=== PATIENT | male | born 1995 | race Caucasian/White ===

== ENCOUNTER 2019-03-23 06:40 | Day surgery (SDC) | payer BC ==
[~2019-03-23] VITALS: Ht 182.9 cm; Wt 109.3 kg
[2019-03-23 07:07] VITALS: BP 163/103; PULSE 103; TEMP 98.3
[2019-03-23 08:26] VITALS: BP 140/63; PULSE 108; TEMP 98
--- NOTE | 2019-03-23 08:26 | NUR ---
The patient arrived back to [facility] [facility] from the operating room at this time. The patient appears alert and oriented and denies any pain or nausea at this time. The patient requests to try some ice water at this time. Post operative vital signs were started at this time. The patient's mother was brought back to be at his bedside. Call light remains within reach. Will continue to monitor the patient.
[2019-03-23 08:41] VITALS: BP 145/61; PULSE 92
--- NOTE | 2019-03-23 08:41 | NUR ---
The patient appears to be resting comfortably on the cart at this time. The patient has tolerated his water and denies wanting anything further to eat or drink at this time. Vital signs appear stable. Will continue to monitor the patient.
[2019-03-23 08:55] VITALS: BP 130/73; PULSE 85
--- NOTE | 2019-03-23 08:55 | NUR ---
The patient voices a desire to be discharge home after finishing his water and tolerating it well. Discharge instructions were reviewed with the patient and his mother at this time. They both verbalized understanding and have no questions for the nurse at this time. The patient's IV to his right hand was removed and a pressure dressing was applied to the site. The nurse instructed the patient to get dressed and notify the staff when he is ready to be escorted out.
--- NOTE | 2019-03-23 09:02 | NUR ---
The patient ambulated out to a private vehicle using a steady gait escorted by ESPERANZA Glez. The patient's belongings and discharge paperwork were sent with him. The patient's mother is present to drive him home.
== END 2019-03-23 09:02 | disposition home or self-care (01) ==
LOC: SDCO 06:40
DX: N35.912 Unspecified bulbous urethral stricture, male (principal); I10 Essential (primary) hypertension; Z79.2 Long term (current) use of antibiotics; Z82.5 Family history of asthma and other chronic lower respiratory diseases; Z82.49 Family history of ischemic heart disease and other diseases of the circulatory system; Z83.79 Family history of other diseases of the digestive system; Z86.73 Personal history of transient ischemic attack (TIA), and cerebral infarction without residual deficits; Z83.3 Family history of diabetes mellitus; Z84.1 Family history of disorders of kidney and ureter
CPT/HCPCS: J0690; J2704; J3010; J7120; Q9967